=== PATIENT | male | born 1945 | race Two or more races ===

== ENCOUNTER 2016-08-13 19:29 | Inpatient (IN) | payer OTHER ==
[2016-08-13] MEDS ORDERED: NS 500 ML IV ONE (20:27)
[2016-08-13] MEDS ORDERED: VANCOMYCIN HCL/NORMAL SALINE 250 ML IV ONE (20:28)
--- NOTE | 2016-08-13 20:32 | EDPHY ---
H & P Time Seen by Provider: 08/13/16 20:08 HPI/ROS: CHIEF COMPLAINT: Abdominal wall redness HISTORY OF PRESENT ILLNESS: Patient is a 71-year-old male status post numerous abdominal surgeries who presents emergency department with abdominal wall redness and discomfort. The patient has had numerous hernia repairs with infected mesh. Patient denies fevers or chills. His pain is mild. He went to urgent care was sent to the emergency department for further evaluation. REVIEW OF SYSTEMS: My complete review of systems is negative except as mentioned in the HPI. Past Medical/Surgical History: Includes hypertension, hyperlipidemia, small-bowel obstruction, diabetes type 2 Past surgical history: Multiple abdominal surgeries including hernia repair and her knee revision, appendectomy, lysis of adhesion Social history: The patient does not smoke or use alcohol. Smoking Status: Former smoker Physical Exam: Vitals noted. Afebrile. GENERAL: Well-appearing, in no acute distress, alert. HEENT: Eyes normal to inspection, normal pharynx, no signs of dehydration. NECK: No thyromegaly, no lymphadenopathy, supple. RESPIRATORY: Clear to auscultation bilaterally, no rales, rhonchi or wheezing. CVS: Regular rate and rhythm, no rubs, murmurs, or gallops. ABDOMEN: Soft, nontender, nondistended, no organomegaly. Patient has noted erythema on his abdomen. There is mild tense tissue. No palpable fluctuance. Mild warmth. BACK: Normal to inspection, no CVA tenderness. SKIN: Normal color, no rash, warm, dry. No pallor. Referred to abdominal exam. EXTREMITIES: No pedal edema, no calf tenderness, no Homans sign or cords, no joint swelling. NEURO/PSYCH: Alert and oriented, normal mood and affect, normal motor sensory exam. Constitutional: Initial Vital Signs Temperature (C) 36.8 C 08/13/16 19:38 Heart Rate 78 08/13/16 19:38 Respiratory Rate 16 08/13/16 19:38 Blood Pressure 139/97 H 08/13/16 19:38 O2 Sat (%) 95 08/13/16 19:38 O2 Delivery Mode Room Air Allergies/Adverse Reactions: No Known Allergies Allergy (Verified 08/13/16 19:42) Home Medications: Medication Instructions Recorded Aspirin [Aspirin 81mg (*)] 81 mg PO DAILY 04/19/14 Lisinopril/Hctz 20/12.5MG 2 ea PO DAILY 04/19/14 [Zestoretic/Prinzide 20/12.5MG (*)] Simvastatin [Zocor 40 mg] 40 mg PO DAILY18 04/19/14 Metformin HCl 08/13/16 Medical Decision Making - Diagnostics Imaging: Discussed imaging studies w/ call specialist Radiologist ED Course/Re-evaluation: In the emergency department an IV was placed. Laboratory studies were obtained. Patient was given Rocephin 1 g IV and vancomycin 1 g IV. Patient had an I-STAT creatinine 1.3. Patient's white count was normal. CT of the abdomen pelvis: Please refer the dictated report by Dr. Montelongo. Patient has a 17 mm abscess in the umbilicus. There is abdominal wall information. On recheck the patient was stable. The patient will be admitted for further evaluation. I discussed case with Dr. Killian. She agreed to admission. I discussed the plan with the patient and answered all his questions. Differential Diagnosis: My differential includes but is not limited to cellulitis, abscess, fistula, small-bowel obstruction, perforation - Data Points Laboratory Results: Laboratory Results 08/13/16 20:20 08/13/16 20:20 08/13/16 08/13/16 08/13/16 20:31 20:20 20:20 WBC 8.30 10^3/uL 10^3/uL (3.80-9.50) RBC 4.93 10^6/uL 10^6/uL (4.40-6.38) Hgb 14.5 g/dL g/dL (13.7-17.5) POC Hgb 14.6 gm/dL gm/dL (14.5-17.3) Hct 42.5 % % (40.0-51.0) POC Hct 43 % % (42.8-50.6) MCV 86.2 fL fL (81.5-99.8) MCH 29.4 pg pg (27.9-34.1) MCHC 34.1 g/dL g/dL (32.4-36.7) RDW 13.5 % % (11.5-15.2) Plt Count 170 10^3/uL 10^3/uL (150-400) MPV 10.8 fL fL (8.7-11.7) Neut % (Auto) 66.6 % % (39.3-74.2) Lymph % (Auto) 19.9 % % (15.0-45.0) [place] % (Auto) 7.7 % % (4.5-13.0) Eos % (Auto) 5.2 % % (0.6-7.6) Baso % (Auto) 0.4 % % (0.3-1.7) Nucleat RBC Rel Count 0.0 % % (0.0-0.2) Absolute Neuts (auto) 5.53 10^3/uL 10^3/uL (1.70-6.50) Absolute Lymphs (auto) 1.65 10^3/uL 10^3/uL (1.00-3.00) Absolute Monos (auto) 0.64 10^3/uL 10^3/uL (0.30-0.80) Absolute Eos (auto) 0.43 10^3/uL H 10^3/uL (0.03-0.40) Absolute Basos (auto) 0.03 10^3/uL 10^3/uL (0.02-0.10) Absolute Nucleated RBC 0.00 10^3/uL 10^3/uL (0-0.01) Immature Gran % 0.2 % % (0.0-1.1) Immature Gran # 0.02 10^3/uL 10^3/uL (0.00-0.10) POC Sodium 143 mEq/L mEq/L (134-144) Sodium 139 mEq/L mEq/L (134-144) POC Potassium 3.5 mEq/L mEq/L (3.3-5.0) Potassium 3.7 mEq/L mEq/L (3.5-5.2) POC Chloride 104 mEq/L mEq/L (96-108) Chloride 105 mEq/L mEq/L (97-110) Carbon Dioxide 24 mEq/l mEq/l (22-31) Anion Gap 10 mEq/L mEq/L (8-16) POC BUN 24 mg/dL H mg/dL (7-23) BUN 25 mg/dL H mg/dL (7-23) Creatinine 1.1 mg/dL mg/dL (0.7-1.3) POC Creatinine 1.3 mg/dL mg/dL (0.8-1.5) Estimated GFR > 60 Glucose 107 mg/dL H mg/dL (70-100) POC Glucose 110 mg/dL H mg/dL (70-100) Calcium 9.6 mg/dL mg/dL (8.5-10.4) Medications Given: Discontinued Medications Sodium Chloride (Ns) 500 mls @ 0 mls/hr IV ONCE ONE PRN Reason: Wide Open Stop: 08/13/16 20:28 Last Admin: 08/13/16 20:35 Dose: 500 mls Ceftriaxone Sodium/Dextrose (Rocephin 1 Gm (Premix)) 50 mls @ 100 mls/hr IV EDNOW ONE PRN Reason: Protocol Stop: 08/13/16 20:57 Last Admin: 08/13/16 20:35 Dose: 50 mls Vancomycin/Sodium Chloride (Vancomycin 1 Gm (Premix)) 250 mls @ 250 mls/hr IV EDNOW ONE PRN Reason: Protocol Stop: 08/13/16 21:27 Last Admin: 08/13/16 21:06 Dose: 250 mls Point of Care Test Results: 08/13/16 20:31 POC Sodium 143 POC Potassium 3.5 POC Chloride 104 POC BUN 24 H POC Creatinine 1.3 POC Glucose 110 H Departure - Departure Disposition: [facility] Inpatient Acute Clinical Impression: Abdominal wall cellulitis Condition: Good Referrals: Ric Mckeon MD [Primary Care Provider] - As per Instructions
[2016-08-13 20:45] LABS: % IMMATURE GRANULYOCYTES 0.2 % (0.0-1.1); ABSOLUTE IMMATURE GRANULOCYTES 0.02 10^3/uL (0.00-0.10); ADD DIFF? NO; ADD MORPH? NO; ADD SCAN? NO; ATYPICAL LYMPHOCYTE FLAG 0 (0-99); FRAGMENT RBC FLAG 0 (0-99); HEMATOCRIT 42.5 % (40.0-51.0); HEMOGLOBIN 14.5 g/dL (13.7-17.5); LEFT SHIFT FLG 0 (0-99); LIPEMIA HEMOLYSIS FLAG 90 (0-99); MEAN CELL HEMOGLOBIN 29.4 pg (27.9-34.1); MEAN CELL HEMOGLOBIN CONCENTR. 34.1 g/dL (32.4-36.7); MEAN CELL VOLUME 86.2 fL (81.5-99.8); MEAN PLATELET VOLUME 10.8 fL (8.7-11.7); PLATELET CLUMPS FLAG 0 (0-99); PLATELET COUNT 170 10^3/uL (150-400); RED BLOOD CELL COUNT 4.93 10^6/uL (4.40-6.38); RED CELL DISTRIBUTION WIDTH 13.5 % (11.5-15.2)
[2016-08-13 21:03] LABS: ANION GAP 10 mEq/L (8-16); CALCIUM 9.6 mg/dL (8.5-10.4); CARBON DIOXIDE 24 mEq/l (22-31); CHLORIDE 105 mEq/L (97-110); CREATININE 1.1 mg/dL (0.7-1.3); GLOMERULAR FILTRATION RATE > 60; GLUCOSE 107 mg/dL (70-100); POTASSIUM 3.7 mEq/L (3.5-5.2); SODIUM 139 mEq/L (134-144)
[2016-08-13] MEDS ORDERED: IOPAMIDOL (ISOVUE-300) 100 ML BTL IV ONE (21:13)
[2016-08-14] MEDS ORDERED: ACETAMINOPHEN 325 MG TAB PO PRN (00:24)
[2016-08-14] MEDS ORDERED: ONDANSETRON 4 MG/2 ML VIAL IVP PRN (00:24)
[2016-08-14] MEDS ORDERED: ONDANSETRON DISINTEGRATING 4 MG TAB PO PRN (00:24)
[2016-08-14] MEDS ORDERED: NS 1,000 ML IV SCH (00:30)
--- NOTE | 2016-08-14 02:13 | GHP ---
[f rep st] HISTORY AND PHYSICAL DATE OF ADMISSION: 08/14/2016 CHIEF COMPLAINT: Abdominal wall cellulitis: Patient is a 71-year-old male with history of diabetes, hypertension and hyperlipidemia, presenting with abdominal wall cellulitis. For the past 2 weeks, reports having small pimples on the right lower abdomen. He has noticed increased pain and mild swelling in that region. This area became red and hard yesterday with pain being 8/10 sharp in nature. He denies any fevers, chills, or sweats. No nausea or vomiting. Had 1 episode of diarrhea on Saturday. He denies picking at the pimples. REVIEW OF SYSTEMS: I completed 10-point review of systems, negative except as noted in HPI. PAST MEDICAL HISTORY: 1. Hypertension. 2. Diabetes. 3. CVA. 4. Hyperlipidemia. PAST SURGERY: 1. Appendectomy. 2. Cholecystectomy. 3. Abdominal hernia. 4. Several inguinal hernia surgeries. 5. An ankle surgery. FAMILY HISTORY: CVA. SOCIAL HISTORY: Lives in [place]. Originally from [facility]. No illicit's, tobacco, or alcohol. ALLERGIES: No known drug allergies. MEDICATIONS: See medication reconciliation. PHYSICAL EXAM: VITAL SIGNS: Temperature 98.4, blood pressure 163/94, heart rate 60s, respirations 14, 97% on room air. GENERAL: Patient lying in bed, no acute distress. HEENT: PERRLA, EOMI. Oropharynx clear. CV: Regular rate and rhythm. No murmurs, gallops, rubs. LUNGS: Clear to auscultation bilaterally. ABDOMEN: Soft, nondistended. Right of the umbilicus is a small orange-sized mass with induration and erythema. It is tender to palpation. There are a few small, raised, papules in that region. Positive bowel sounds. : No suprapubic tenderness. MUSCULOSKELETAL: 5/5 upper and lower extremity strength. NEURO: 2-12 intact. PSYCH: Alert and oriented x3. LABORATORY DATA: WBC 8, Hb 14, Hct 42, Platelets 170, Na 143, K 3.5, Cl 104, HCO3 24, Cr 1.3, Glucose 110 CT: Small abdominal wall abscess right of the umbilicus. Stable liver cyst and bilateral renal cysts ASSESSMENT AND PLAN: 1. Abdominal wall cellulitis: etiology was a small pimple. Currently afebrile and hemodynamically stable. IV vancomycin and ertapenem overnight and contact Surgery in the morning for incision and drainage. 2. Benign hypertension. Continue home medications. 3. Controlled diabetes. Will resume metformin. 4. Hyperlipidemia on statin. 5. History of cerebrovascular accident, no long-standing deficits. 6. NIMA: BL 0.9, up to 1.3. IVFs, hold Lisinopri 7. Diet: NPO, then diabetic 8. Deep venous thrombosis prophylaxis. Sequential compression devices in case of surgical procedure. DISPOSITION: Patient warrants observation admission given acute abdominal wall abscess warranting IV antibiotics and likely surgical I and D. /[id number]/MODL MTDD
[2016-08-14] MEDS ORDERED: D50W 25 GM/50 ML SYR IVP PRN (03:32)
[2016-08-14 04:44] LABS: ANION GAP 10 mEq/L (8-16); CALCIUM 8.5 mg/dL (8.5-10.4); CARBON DIOXIDE 22 mEq/l (22-31); CHLORIDE 108 mEq/L (97-110); CREATININE 0.8 mg/dL (0.7-1.3); GLOMERULAR FILTRATION RATE > 60; GLUCOSE 117 mg/dL (70-100); POTASSIUM 3.9 mEq/L (3.5-5.2); SODIUM 140 mEq/L (134-144)
[2016-08-14 04:54] LABS: INR 1.08 (0.83-1.16); PROTIME(PATIENT) 13.9 SEC (12.0-15.0)
[2016-08-14 04:55] LABS: APTT 28.9 SEC (23.0-38.0)
[2016-08-14] MEDS: oxyCODONE IR 5 MG TAB PO PRN ×3 (06:05→20:19)
[2016-08-14] MEDS ORDERED: ERTAPENEM 1 GM in NS 100 ML IV SCH (09:00)
[2016-08-14] MEDS ORDERED: LIDOCAINE 1% 30 ML SDV IF ONE (09:05)
[2016-08-14] MEDS: ASPIRIN 81 MG CHEWABLE TAB PO SCH (09:48)
[2016-08-14] MEDS: INSULIN LISPRO 100 UNIT/ML SC SCH ×3 (09:49→17:54)
[2016-08-14] MEDS: VANCOMYCIN HCL/NORMAL SALINE 250 ML IV SCH ×2 (09:49→21:40)
--- NOTE | 2016-08-14 10:12 | HOSPPROG ---
Hospitalist Progress Note Assessment/Plan: # abd wall abscess/cellulitis - appreciate I&D by Dr Cadena today - narrow to vanc today, hopefully will get cx data # DM2 - hold metformin, cont SSI # htn - currently holding meds, will need to restart soon # CVA - asa/statin Objective: Vital Signs Temp Pulse Resp BP Pulse Ox 36.8 C 67 16 134/82 H 94 08/14/16 08:15 08/14/16 08:15 08/14/16 08:15 08/14/16 08:15 08/14/16 08:15 Laboratory Results 08/14/16 04:10 08/13/16 08/14/16 08/15/16 05:59 05:59 05:59 Intake Total 1675 Output Total 550 Balance 1125 PT 13.9 SEC (12.0-15.0) 08/14/16 04:10 INR 1.08 (0.83-1.16) 08/14/16 04:10 ICD10 Worksheet Patient Problems: Problems Problem Status Onset Abdominal wall cellulitis Acute Gallstones and inflammation of gallbladder with obstruction Acute
[2016-08-14] MEDS: ATORVASTATIN CALCIUM 20 MG TAB PO SCH (20:19)
[2016-08-15] MEDS: oxyCODONE IR 5 MG TAB PO PRN ×2 (04:49→10:36)
--- NOTE | 2016-08-15 05:52 | GPN ---
[f rep st] PROCEDURE NOTE DATE OF PROCEDURE: 08/14/2016 PREOPERATIVE DIAGNOSIS: Right abdominal wall cellulitis and abscess. PROCEDURE PERFORMED: Incision and drainage of abdominal wall abscess. POSTOPERATIVE DIAGNOSIS: Right abdominal wall cellulitis and abscess. INDICATION: The patient is a 71-year-old man who presented to the emergency room with worsening red ness and swelling of his right abdomen. He had a CT scan which showed a fluid collection consistent with abscess. FINDINGS: Small amount of purulent fluid mixed with serosanguineous fluid. DESCRIPTION OF PROCEDURE: The patient verbally consented for the procedure. A time-out was perform ed. The area was prepped in the usual sterile fashion. I then infiltrated with 6 cc of 1% lidocain e. I made a cruciate incision over the area of induration. I dissected down to the abscess pocket and broke up any loculations. There was a small amount of purulent fluid mixed with serosanguineous fluid. A culture was obtained. I then irrigated the cavity with 30 cc of normal saline. I packed with quarter-inch plain gauze and dressed with an Allevyn. He tolerated the procedure well. We wi ll change the packing daily and will continue to monitor erythema. /[id number]/MODL
[2016-08-15] MEDS: INSULIN LISPRO 100 UNIT/ML SC SCH ×3 (09:10→17:47)
[2016-08-15] MEDS: ASPIRIN 81 MG CHEWABLE TAB PO SCH ×2 (09:10→09:29)
--- NOTE | 2016-08-15 09:52 | HOSPPROG ---
Hospitalist Progress Note Assessment/Plan: 71-year-old man with a history of multiple abdominal surgeries presents with abdominal wall abscess and cellulitis. Status post I&D yesterday with significantly improved erythema. Would like to continue IV antibiotics for 1 more day wall following wound culture then can likely taper to p.o. and discharge. # abd wall abscess/cellulitis - s/p I&D; significantly improved erythema - cont vanc, follow wound culture # DM2 - hold metformin, cont SSI # htn - restart home meds today # CVA - asa/statin ## op note reviewed Subjective: s/p bedside I&D yesterday Objective: Vital Signs Temp Pulse Resp BP Pulse Ox 36.7 C 67 16 164/84 H 94 08/15/16 07:53 08/15/16 07:53 08/15/16 07:53 08/15/16 07:53 08/15/16 07:53 Microbiology 08/14/16 15:00 Gram Stain - Final Abdomen - Swab 08/14/16 08/15/16 08/16/16 05:59 05:59 05:59 Intake Total 3403 Output Total 1800 Balance 1603 PT 13.9 SEC (12.0-15.0) 08/14/16 04:10 INR 1.08 (0.83-1.16) 08/14/16 04:10 - Physical Exam Constitutional: no apparent distress, appears nourished Cardiovascular: regular rate and rhythym, no murmur, rub, or gallop Respiratory: no respiratory distress, no rales or rhonchi, clear to auscultation Gastrointestinal: other (gauze with blood; s/p I&D; decreased erythema; multiple old surgical scars) ICD10 Worksheet Patient Problems: Problems Problem Status Onset Gallstones and inflammation of gallbladder with obstruction Acute Abdominal wall cellulitis Acute
[2016-08-15] MEDS: VANCOMYCIN HCL/NORMAL SALINE 250 ML IV SCH (10:35)
[2016-08-15] MEDS: ENOXAPARIN 40 MG/0.4 ML SYR SC SCH (10:36)
[2016-08-15] MEDS: LISINOPRIL/HCTZ 20/12.5MG 1 EA TAB PO SCH (10:36)
[2016-08-15] MEDS ORDERED: VANCOMYCIN 1.25 GM in D5W 250 ML IV SCH (11:00)
--- NOTE | 2016-08-15 14:23 | SOAPPROG ---
SOAP Progress Note Assessment/Plan: Assessment: 71-year-old man admitted for cellulitis of abdominal wall with a abdominal wall abscess. incision and drainage was performed yesterday. Erythema has totally resolved. Wound was irrigated and repacked today. I will pack the wound tomorrow with Hydrofera Blue. He can follow up in my office on Saturday Plan: 08/15/16 14:19 Objective: Vital Signs Temp Pulse Resp BP Pulse Ox 36.3 C 63 18 130/84 H 96 08/15/16 13:08 08/15/16 13:08 08/15/16 13:08 08/15/16 13:08 08/15/16 13:08 Microbiology 08/14/16 15:00 Gram Stain - Final Abdomen - Swab 08/14/16 08/15/16 08/16/16 05:59 05:59 05:59 Intake Total 3403 Output Total 1800 500 Balance 1603 -500 PT 13.9 SEC (12.0-15.0) 08/14/16 04:10 INR 1.08 (0.83-1.16) 08/14/16 04:10 ICD10 Worksheet Patient Problems: Problems Problem Status Onset Abdominal wall cellulitis Acute Gallstones and inflammation of gallbladder with obstruction Acute
[2016-08-15] MEDS: ATORVASTATIN CALCIUM 20 MG TAB PO SCH (20:43)
[2016-08-15] MEDS: VANCOMYCIN 1.25 GM in D5W 250 ML IV SCH (20:43)
[2016-08-16 04:46] VITALS: RESP 18
[2016-08-16 05:17] LABS: % IMMATURE GRANULYOCYTES 0.4 % (0.0-1.1); ABSOLUTE IMMATURE GRANULOCYTES 0.03 10^3/uL (0.00-0.10); ADD DIFF? NO; ADD MORPH? NO; ADD SCAN? NO; ATYPICAL LYMPHOCYTE FLAG 10 (0-99); FRAGMENT RBC FLAG 0 (0-99); HEMATOCRIT 41.9 % (40.0-51.0); HEMOGLOBIN 14.4 g/dL (13.7-17.5); LEFT SHIFT FLG 0 (0-99); LIPEMIA HEMOLYSIS FLAG 90 (0-99); MEAN CELL HEMOGLOBIN 29.4 pg (27.9-34.1); MEAN CELL HEMOGLOBIN CONCENTR. 34.4 g/dL (32.4-36.7); MEAN CELL VOLUME 85.5 fL (81.5-99.8); MEAN PLATELET VOLUME 10.7 fL (8.7-11.7); PLATELET CLUMPS FLAG 10 (0-99); PLATELET COUNT 164 10^3/uL (150-400); RED CELL DISTRIBUTION WIDTH 13.2 % (11.5-15.2)
[2016-08-16 05:28] LABS: ANION GAP 9 mEq/L (8-16); CALCIUM 8.9 mg/dL (8.5-10.4); CARBON DIOXIDE 23 mEq/l (22-31); CHLORIDE 105 mEq/L (97-110); CREATININE 0.8 mg/dL (0.7-1.3); GLOMERULAR FILTRATION RATE > 60; GLUCOSE 138 mg/dL (70-100); POTASSIUM 3.8 mEq/L (3.5-5.2); SODIUM 137 mEq/L (134-144)
[2016-08-16 08:02] VITALS: BP 127/92; PULSE 68; TEMP 97.5; O2SAT 95
[2016-08-16] MEDS: INSULIN LISPRO 100 UNIT/ML SC SCH (08:06)
[2016-08-16] MEDS: ENOXAPARIN 40 MG/0.4 ML SYR SC SCH (08:11)
[2016-08-16] MEDS: LISINOPRIL/HCTZ 20/12.5MG 1 EA TAB PO SCH (08:13)
[2016-08-16] MEDS: ASPIRIN 81 MG CHEWABLE TAB PO SCH (08:13)
[2016-08-16] MEDS: VANCOMYCIN 1.25 GM in D5W 250 ML IV SCH (08:14)
--- NOTE | 2016-08-16 09:14 | SOAPPROG ---
SOAP Progress Note Assessment/Plan: Assessment: 71-year-old man admitted for cellulitis of abdominal wall with an abdominal wall abscess. incision and drainage was performed Saturday. Erythema has totally resolved. Wound was irrigated and repacked today. He can follow up in my office on Saturday Plan: 08/15/16 14:19 08/16/16 09:13 Objective: Vital Signs Temp Pulse Resp BP Pulse Ox 36.4 C 68 18 127/92 H 95 08/16/16 07:40 08/16/16 07:40 08/16/16 07:40 08/16/16 07:40 08/16/16 07:40 Microbiology 08/14/16 15:00 Gram Stain - Final Abdomen - Swab Laboratory Results 08/16/16 05:03 08/16/16 05:03 08/15/16 08/16/16 08/17/16 05:59 05:59 05:59 Intake Total 3403 1205 250 Output Total 1800 1250 200 Balance 1603 -45 50 PT 13.9 SEC (12.0-15.0) 08/14/16 04:10 INR 1.08 (0.83-1.16) 08/14/16 04:10 ICD10 Worksheet Patient Problems: Problems Problem Status Onset Abdominal wall cellulitis Acute Gallstones and inflammation of gallbladder with obstruction Acute
--- NOTE | 2016-08-16 09:46 | GDS ---
[f rep st] DISCHARGE SUMMARY DISCHARGE DIAGNOSES: 1. Cellulitis and abdominal wall abscess. 2. Abdominal pain secondary to abscess. 3. Benign hypertension. 4. Controlled diabetes. 5. History of cerebrovascular accident. 6. Hyperlipidemia. CONSULTATIONS: General Surgery. PROCEDURES: I and D of abdominal wall abscess. 08/14/2016.HPI: The patient is a 71-year-old male with history of diabetes, hypertension, prior CVA , presenting with abdominal wall cellulitis. For the past 2 weeks he reports having small pimples i n the right lower abdomen. He has noticed increased pain and swelling in that region, worse over e last day prior to admission. At that time, they became very red and firm. He describes the pain as being sharp, 8/10. Denies fever, chills, or sweats. No nausea, vomiting, or diarrhea. He had 1 episode of diarrhea on Saturday. HOSPITAL COURSE BY PROBLEM: 1. Abdominal wall abscess/cellulitis: The patient had underwent I and D by Surgery with resolution of erythema. The wound was packed today, and the patient is to follow up with Dr. Cadena on Saturday. We will treat with doxycycline for 7 days given swab was positive for Staph aureus. 2. Acute abdominal pain secondary to this abscess, has since resolved. 3. Benign hypertension. Continue home medications. 4. History of CVA. Continue statin aspirin. 5. Hyperlipidemia, statin. DISPOSITION: The patient is stable for discharge. FOLLOWUP: Dr. Cadena on Saturday, 08/20. NEW MEDICATIONS: Doxycycline 100 mg twice daily for 7 days. /[id number]/MODL
[2016-08-16] MEDS ORDERED: PNEUMOC 13-VAL CONJ-DIP CRM/PF 0.5 ML SYR IM ONE (09:49)
--- NOTE | 2016-08-17 12:04 | GCON ---
[f rep st] CONSULTATION DATE OF CONSULTATION: 08/14/2016 REASON FOR CONSULTATION: Abdominal wall abscess. HISTORY OF PRESENT ILLNESS: The patient is a 71-year-old man who presented to the emergency room wi th abdominal wall cellulitis. He has had small pimples on his abdomen, which usually resolve after expressing a small amount of fluid. This time, however, the redness and swelling increased as well as pain. He denied fevers, chills, nausea, vomiting. In the emergency room, he had an abdominal CT performed which showed a small pocket of fluid on the right superior aspect of the umbilicus, which could represent a small abscess. PAST MEDICAL HISTORY: Hypertension, diabetes, CVA, hyperlipidemia. PAST SURGICAL HISTORY: Appendectomy, cholecystectomy, abdominal ventral hernia repair with mesh, in guinal hernia repair with mesh, ankle surgery. FAMILY HISTORY: Significant for CVA. SOCIAL HISTORY: He lives in [place], [place]. He is originally from [facility]. He denies tobacco, a lcohol, or recreational drug use. He has 5 grandchildren. ALLERGIES: No known drug allergies. REVIEW OF SYSTEMS: 10-point review of systems negative aside from HPI. PHYSICAL EXAMINATION: GENERAL: Well-developed, well-nourished man in no acute distress. HEENT: N ormocephalic, atraumatic. No hearing deficits. Pupils equal and round. No scleral icterus. Mucou s membranes moist. NECK: Trachea midline. RESPIRATORY: No increased work of breathing. ABDOMEN: There is erythema and induration of the right abdomen superior to the umbilicus. He is tender to palpation. There is no other evidence of abscess. He has many surgical scars. IMPRESSION AND PLAN: The patient is a 71-year-old man with an abdominal wall abscess. He is on IV antibiotics. We recommend incision and drainage of the abscess to help alleviate pressure and send for culture. We hope that the underlying mesh from his ventral hernia repair is not infected. If t his is the case, this may require further surgery. We can do the incision and drainage at the [facility] with local anesthetic. We discussed risks including, but not limited to, infection, bleeding, de layed wound healing, or need for additional procedures. He understands the risks and would like to proceed. The wound will require packing. We will perform I and D later today with op note to mao villarreal /[id number]/MODL
== END 2016-08-16 13:00 | disposition home or self-care (01) | DRG 581 ==
LOC: F1N 23:35 → OBSVTOIN 08-14 10:30
PROVIDERS: ADMIT Internal Medicine; ATTEND Internal Medicine
PROC: 0W9F0ZZ Drainage of Abdominal Wall, Open Approach (ICD-10-PCS; principal; 2016-08-14)
DX: L02.211 Cutaneous abscess of abdominal wall (principal); L03.311 Cellulitis of abdominal wall; B95.61 Methicillin susceptible Staphylococcus aureus infection as the cause of diseases classified elsewhere; I10 Essential (primary) hypertension; E11.9 Type 2 diabetes mellitus without complications; E78.5 Hyperlipidemia, unspecified; Z86.73 Personal history of transient ischemic attack (TIA), and cerebral infarction without residual deficits; Z23 Encounter for immunization
CPT/HCPCS: 82947-QW; 96365; G0009; G0378; J0696; J1335; J1650; J1815; J2405; J3370; Q9967